=== PATIENT | female | born 1985 | race Caucasian/White ===

== ENCOUNTER 2023-06-11 10:40 | Inpatient (IN) | payer MEDICAID ==
[~2023-06-11] VITALS: Ht 172.7 cm; Wt 73.5 kg
[2023-06-11] MEDS ORDERED: ZOLPIDEM TARTRATE 10 MG TABLET PO PRN (12:15)
[2023-06-11] MEDS ORDERED: LORazepam 2 MG TABLET PO PRN (12:15)
[2023-06-11] MEDS ORDERED: HALOPERIDOL 5 MG TABLET PO PRN (12:15)
[2023-06-11] MEDS ORDERED: INFLUENZA VIRUS VACCINE QVS 2023-24 (6MO+)/PF 60 MCG/0.5 ML SYRINGE IM. ONE (12:30)
[2023-06-11 13:14] VITALS: BP 105/60; PULSE 64; RESP 18; TEMP 97.8; O2SAT 98
[2023-06-11 21:07] VITALS: BP 106/61; PULSE 74; RESP 18; TEMP 97.8; O2SAT 99
[2023-06-12] MEDS ORDERED: DOCUSATE SODIUM 100 MG CAPSULE PO PRN (05:30)
[2023-06-12] MEDS ORDERED: MAG HYDROX/ALUMINUM HYD/SIMETH ES 30 ML SUSPENSION UDCUP PO PRN (05:30)
[2023-06-12] MEDS ORDERED: BACITRACIN 28 GM OINTMENT TP PRN (05:30)
[2023-06-12] MEDS ORDERED: BENZOCAINE/MENTHOL LOZENGE PO PRN (05:30)
[2023-06-12] MEDS ORDERED: ALBUTEROL SULFATE HFA 90 MCG/PUFF 8 GM INHALER IH PRN (05:30)
[2023-06-12] MEDS ORDERED: MAGNESIUM HYDROXIDE SUSPENSION 30 ML UDCUP PO PRN (05:30)
[2023-06-12] MEDS ORDERED: OMEPRAZOLE 20 MG CAPSULE PO PRN (05:30)
[2023-06-12 08:13] VITALS: BP 97/60; PULSE 75; RESP 17; TEMP 97.5; O2SAT 99
[2023-06-12 20:29] VITALS: BP 108/61; PULSE 73; RESP 18; TEMP 98.1; O2SAT 98
[2023-06-13 09:07] VITALS: BP 115/67; PULSE 74; RESP 17; TEMP 97.5; O2SAT 98
[2023-06-13 20:26] VITALS: BP 112/65; PULSE 58; RESP 17; TEMP 97.5; O2SAT 99
[2023-06-14 08:30] VITALS: BP 118/75; PULSE 80; RESP 18; TEMP 98; O2SAT 98
[2023-06-14] MEDS: RisperiDONE 3 MG TABLET PO SCH (16:39)
[2023-06-14 20:30] VITALS: BP 120/65; PULSE 74; RESP 16; TEMP 97.9; O2SAT 98
[2023-06-15] MEDS: RisperiDONE 3 MG TABLET PO SCH ×2 (08:55→17:00)
[2023-06-15 09:09] VITALS: BP 118/70; PULSE 74; RESP 17; TEMP 97.5; O2SAT 100
[2023-06-15 20:49] VITALS: BP 106/60; PULSE 77; RESP 18; TEMP 97.2; O2SAT 99
[2023-06-16 08:38] VITALS: BP 117/67; PULSE 80; RESP 17; TEMP 98.1; O2SAT 99
[2023-06-16] MEDS: RisperiDONE 3 MG TABLET PO SCH ×3 (09:00→16:44)
[2023-06-16 20:24] VITALS: BP 100/64; PULSE 73; RESP 18; TEMP 98.1; O2SAT 98
[2023-06-17 08:27] VITALS: BP 104/55; PULSE 62; RESP 18; TEMP 97.7; O2SAT 99
[2023-06-17] MEDS: RisperiDONE 3 MG TABLET PO SCH ×2 (09:37→16:38)
[2023-06-17] MEDS: PETROLATUM,WHITE 28 GM JELLY TP PRN (11:11)
[2023-06-17 20:12] VITALS: BP 113/60; PULSE 78; RESP 19; TEMP 97.6; O2SAT 96
[2023-06-18 08:19] VITALS: BP 117/62; PULSE 66; RESP 18; TEMP 97.9; O2SAT 98
[2023-06-18] MEDS: RisperiDONE 3 MG TABLET PO SCH ×2 (09:24→16:15)
[2023-06-18] MEDS: IBUPROFEN 600 MG TABLET PO PRN ×3 (09:32→22:26)
[2023-06-18 10:32] VITALS: BP 110/60; RESP 16
[2023-06-18 17:18] VITALS: RESP 16
[2023-06-18 22:26] VITALS: BP 115/65; PULSE 68; RESP 16; TEMP 97.5; O2SAT 96
[2023-06-18 23:26] VITALS: RESP 18
[2023-06-18 23:44] VITALS: BP 120/68; PULSE 70; RESP 18; TEMP 97.6; O2SAT 97
[2023-06-19] MEDS: RisperiDONE 3 MG TABLET PO SCH ×2 (09:02→16:52)
[2023-06-19 09:29] VITALS: BP 135/77; PULSE 87; RESP 17; TEMP 97.4; O2SAT 100
[2023-06-19 20:32] VITALS: BP 118/69; PULSE 83; RESP 21; TEMP 97.6; O2SAT 98
[2023-06-20] MEDS: RisperiDONE 3 MG TABLET PO SCH ×2 (08:11→16:34)
[2023-06-20 08:33] LABS: HEMOGLOBIN A1C 5.3 % (3.8-5.6)
[2023-06-20 08:46] LABS: ALANINE AMINOTRANSFERASE 22 U/L (12-78); ALBUMIN 3.5 g/dL (3.4-5.0); ALKALINE PHOSPHATASE 55 U/L (46-116); ANION GAP 9 mmol/L (8-16); ASPARTATE AMINOTRANSFERASE 16 U/L (15-37); BILIRUBIN,TOTAL 0.2 mg/dL (0.1-1.0); CARBON DIOXIDE 27 mmol/L (22-29); CHLORIDE 103 mmol/L (98-107); CHOL/HDL RATIO 6.4 (3.9-5.7); CHOLESTEROL 256 mg/dL (131-200); CREATININE 0.62 mg/dL (0.60-1.30); GLOMERULAR FILTR. RATE CALC > 60 mL/min (>60); GLUCOSE,RANDOM 102 mg/dL (70-110); HDL CHOLESTEROL 40 mg/dL (40-60); POTASSIUM 3.9 mmol/L (3.5-5.1); SODIUM SERUM 139 mmol/L (136-145); TOTAL PROTEIN, SERUM 7.6 g/dL (6.4-8.2); TRIGLYCERIDES 346 mg/dL (15-150); UREA NITROGEN, BLOOD 10 mg/dL (7-18)
[2023-06-20 08:47] LABS: FREE T4 (FREE THYROXINE) 0.83 ng/dL (0.76-1.46); HCG,QUANTITATIVE < 1 mIU/mL (0-6); LDL CHOL (CALC.) 147 mg/dL (0-130)
[2023-06-20 08:54] VITALS: BP 100/63; PULSE 64; RESP 19; TEMP 98; O2SAT 99
[2023-06-20] MEDS: NICOTINE POLACRILEX 2 MG LOZENGE PO PRN (16:34)
[2023-06-20 21:15] VITALS: BP 125/66; PULSE 77; RESP 18; TEMP 97.8; O2SAT 98
[2023-06-21 08:38] VITALS: BP 108/64; PULSE 79; RESP 16; TEMP 97.4; O2SAT 97
[2023-06-21] MEDS: LITHIUM CARBONATE 300 MG ER TABLET PO SCH ×2 (09:00→17:00)
[2023-06-21] MEDS: DIVALPROEX SODIUM 500 MG DR TABLET PO SCH ×2 (09:00→17:00)
[2023-06-21] MEDS: RisperiDONE 3 MG TABLET PO SCH ×2 (09:32→17:24)
[2023-06-21] MEDS: NICOTINE POLACRILEX 2 MG LOZENGE PO PRN ×2 (09:47→20:25)
[2023-06-21 20:24] VITALS: BP 115/66; PULSE 72; RESP 16; TEMP 97.8; O2SAT 98
[2023-06-22] MEDS: RisperiDONE 3 MG TABLET PO SCH ×2 (08:35→16:21)
[2023-06-22] MEDS: DIVALPROEX SODIUM 500 MG DR TABLET PO SCH ×2 (08:47→16:26)
[2023-06-22] MEDS: LITHIUM CARBONATE 300 MG ER TABLET PO SCH ×2 (08:47→16:26)
[2023-06-22 08:55] VITALS: BP 110/70; PULSE 89; RESP 16; TEMP 97.3; O2SAT 98
[2023-06-22] MEDS: NICOTINE POLACRILEX 2 MG LOZENGE PO PRN ×2 (09:15→16:34)
[2023-06-22 20:15] VITALS: BP 107/63; PULSE 64; RESP 18; TEMP 98.3; O2SAT 99
[2023-06-23 08:32] VITALS: BP 120/75; PULSE 78; RESP 18; TEMP 97.8; O2SAT 97
[2023-06-23] MEDS: RisperiDONE 3 MG TABLET PO SCH ×2 (08:46→16:50)
[2023-06-23] MEDS: LITHIUM CARBONATE 300 MG ER TABLET PO SCH ×3 (08:46→16:50)
[2023-06-23] MEDS: DIVALPROEX SODIUM 500 MG DR TABLET PO SCH ×3 (08:46→16:50)
[2023-06-23] MEDS: NICOTINE POLACRILEX 2 MG LOZENGE PO PRN ×2 (08:46→16:50)
[2023-06-23 20:19] VITALS: BP 129/67; PULSE 70; RESP 18; TEMP 97.8; O2SAT 98
[2023-06-24 08:28] VITALS: BP 113/61; PULSE 75; RESP 18; TEMP 97.9; O2SAT 98
[2023-06-24] MEDS: LITHIUM CARBONATE 300 MG ER TABLET PO SCH ×2 (09:00→17:00)
[2023-06-24] MEDS: DIVALPROEX SODIUM 500 MG DR TABLET PO SCH ×2 (09:00→17:00)
[2023-06-24] MEDS: RisperiDONE 3 MG TABLET PO SCH ×2 (10:51→17:01)
[2023-06-24 20:03] VITALS: BP 122/60; PULSE 65; RESP 18; TEMP 97.5; O2SAT 97
[2023-06-25 08:23] VITALS: BP 115/69; PULSE 68; RESP 18; TEMP 97.8; O2SAT 98
[2023-06-25] MEDS: RisperiDONE 3 MG TABLET PO SCH ×2 (08:32→16:13)
[2023-06-25] MEDS: DIVALPROEX SODIUM 500 MG DR TABLET PO SCH ×2 (08:48→16:13)
[2023-06-25] MEDS: LITHIUM CARBONATE 300 MG ER TABLET PO SCH ×2 (08:48→16:13)
[2023-06-25] MEDS: NICOTINE POLACRILEX 2 MG LOZENGE PO PRN ×2 (12:41→20:28)
[2023-06-25 21:47] VITALS: BP 106/61; PULSE 73; RESP 16; TEMP 97.3; O2SAT 98
[2023-06-26] MEDS: RisperiDONE 3 MG TABLET PO SCH ×2 (08:41→17:40)
[2023-06-26] MEDS: DIVALPROEX SODIUM 500 MG DR TABLET PO SCH ×2 (08:41→17:40)
[2023-06-26] MEDS: LITHIUM CARBONATE 300 MG ER TABLET PO SCH ×2 (08:41→17:40)
[2023-06-26] MEDS: NICOTINE POLACRILEX 2 MG LOZENGE PO PRN ×3 (08:41→21:34)
[2023-06-26 08:45] VITALS: BP 112/62; PULSE 91; RESP 17; TEMP 97.7; O2SAT 96
[2023-06-26 21:04] VITALS: BP 123/60; PULSE 79; RESP 17; TEMP 97.7; O2SAT 96
[2023-06-27 08:22] VITALS: BP 117/65; PULSE 74; RESP 17; TEMP 98; O2SAT 97
[2023-06-27] MEDS: DIVALPROEX SODIUM 500 MG DR TABLET PO SCH ×2 (08:33→17:15)
[2023-06-27] MEDS: RisperiDONE 3 MG TABLET PO SCH ×2 (08:33→17:15)
[2023-06-27] MEDS: LITHIUM CARBONATE 300 MG ER TABLET PO SCH ×2 (08:33→17:15)
[2023-06-27] MEDS: NICOTINE POLACRILEX 2 MG LOZENGE PO PRN ×2 (09:11→15:11)
[2023-06-28 01:08] VITALS: BP 108/68; PULSE 74; RESP 16; TEMP 98.3; O2SAT 98
[2023-06-28 08:12] VITALS: BP 118/73; PULSE 87; RESP 17; TEMP 97.9; O2SAT 98
[2023-06-28] MEDS: RisperiDONE 3 MG TABLET PO SCH ×2 (08:13→16:14)
[2023-06-28] MEDS: DIVALPROEX SODIUM 500 MG DR TABLET PO SCH ×2 (08:17→16:22)
[2023-06-28] MEDS: LITHIUM CARBONATE 300 MG ER TABLET PO SCH ×2 (08:18→16:21)
[2023-06-28] MEDS: NICOTINE POLACRILEX 2 MG LOZENGE PO PRN (10:49)
[2023-06-28 20:25] VITALS: BP 119/62; PULSE 99; RESP 16; TEMP 97.7; O2SAT 99
[2023-06-29 08:20] VITALS: BP 106/59; PULSE 74; RESP 18; O2SAT 97
[2023-06-29] MEDS: RisperiDONE 3 MG TABLET PO SCH ×2 (08:21→16:20)
[2023-06-29] MEDS: LITHIUM CARBONATE 300 MG ER TABLET PO SCH ×2 (08:25→17:00)
[2023-06-29] MEDS: DIVALPROEX SODIUM 500 MG DR TABLET PO SCH ×2 (08:25→17:00)
[2023-06-29] MEDS: NICOTINE POLACRILEX 2 MG LOZENGE PO PRN (08:28)
[2023-06-29] MEDS: PETROLATUM,WHITE 28 GM JELLY TP PRN (18:01)
[2023-06-29] MEDS: NICOTINE POLACRILEX 4 MG LOZENGE PO PRN (18:01)
[2023-06-29 20:07] VITALS: BP 113/55; PULSE 87; RESP 18; TEMP 98.1; O2SAT 98
[2023-06-30] MEDS: RisperiDONE 3 MG TABLET PO SCH ×2 (08:17→16:46)
[2023-06-30 08:26] VITALS: BP 123/64; PULSE 67; RESP 16; TEMP 97.9; O2SAT 100
[2023-06-30] MEDS: DIVALPROEX SODIUM 500 MG DR TABLET PO SCH ×2 (09:00→17:00)
[2023-06-30] MEDS: LITHIUM CARBONATE 300 MG ER TABLET PO SCH ×2 (09:00→17:00)
[2023-06-30 20:06] VITALS: BP 108/66; PULSE 75; RESP 17; TEMP 98.1; O2SAT 97
[2023-07-01] MEDS: DIVALPROEX SODIUM 500 MG DR TABLET PO SCH ×2 (09:00→16:25)
[2023-07-01] MEDS: LITHIUM CARBONATE 300 MG ER TABLET PO SCH ×2 (09:00→16:26)
[2023-07-01 09:07] VITALS: BP 124/69; PULSE 70; RESP 19; TEMP 97.9; O2SAT 98
[2023-07-01] MEDS: RisperiDONE 3 MG TABLET PO SCH ×2 (09:39→16:22)
[2023-07-01] MEDS: NICOTINE POLACRILEX 4 MG LOZENGE PO PRN ×2 (10:22→18:41)
[2023-07-01 20:58] VITALS: BP 116/78; PULSE 80; RESP 18; TEMP 97.6; O2SAT 96
[2023-07-01 22:26] LABS: GLUCOMETER DEV NAME(LOC) POC.BV; POC SARS-COV2 AG, FIA NEGATIVE (NEGATIVE)
[2023-07-02 08:07] VITALS: BP 107/70; PULSE 86; RESP 17; TEMP 97.7; O2SAT 96
[2023-07-02] MEDS: RisperiDONE 3 MG TABLET PO SCH ×2 (08:40→16:40)
[2023-07-02] MEDS: DIVALPROEX SODIUM 500 MG DR TABLET PO SCH ×2 (08:55→16:40)
[2023-07-02] MEDS: LITHIUM CARBONATE 300 MG ER TABLET PO SCH ×2 (08:55→16:41)
[2023-07-02 21:11] VITALS: BP 133/80; PULSE 93; RESP 17; TEMP 97.5; O2SAT 97
[2023-07-03] MEDS: RisperiDONE 3 MG TABLET PO SCH ×2 (08:18→16:40)
[2023-07-03] MEDS: DIVALPROEX SODIUM 500 MG DR TABLET PO SCH ×2 (08:23→16:40)
[2023-07-03] MEDS: LITHIUM CARBONATE 300 MG ER TABLET PO SCH ×2 (08:23→16:40)
[2023-07-03 08:30] VITALS: BP 137/82; PULSE 96; RESP 17; TEMP 97.9; O2SAT 96
[2023-07-03 20:04] VITALS: BP 137/84; PULSE 96; RESP 17; TEMP 97.4; O2SAT 97
[2023-07-03] MEDS ORDERED: LORazepam 2 MG/ML VIAL IM ONE (20:45)
[2023-07-03] MEDS ORDERED: DiphenhydrAMINE HCL 50 MG/ML VIAL IM ONE (20:45)
[2023-07-03] MEDS ORDERED: HALOPERIDOL LACTATE 5 MG/ML VIAL IM ONE (20:45)
[2023-07-04 08:08] VITALS: BP 104/59; PULSE 70; RESP 18; TEMP 97.7; O2SAT 96
[2023-07-04] MEDS: LITHIUM CARBONATE 300 MG ER TABLET PO SCH ×2 (08:34→16:48)
[2023-07-04] MEDS: DIVALPROEX SODIUM 500 MG DR TABLET PO SCH ×2 (08:34→16:48)
[2023-07-04] MEDS: RisperiDONE 3 MG TABLET PO SCH ×2 (08:34→16:48)
[2023-07-04] MEDS: NICOTINE POLACRILEX 4 MG LOZENGE PO PRN (17:22)
[2023-07-04 22:54] VITALS: BP 125/70; PULSE 72; RESP 18; TEMP 97.6; O2SAT 98
[2023-07-05 08:29] VITALS: BP 132/74; PULSE 93; RESP 17; TEMP 98.3; O2SAT 100
[2023-07-05] MEDS: RisperiDONE 3 MG TABLET PO SCH ×2 (08:44→16:09)
[2023-07-05] MEDS: DIVALPROEX SODIUM 500 MG DR TABLET PO SCH ×2 (08:48→16:13)
[2023-07-05] MEDS: LITHIUM CARBONATE 300 MG ER TABLET PO SCH ×2 (08:48→16:13)
[2023-07-05] MEDS: NICOTINE POLACRILEX 4 MG LOZENGE PO PRN ×2 (09:59→17:28)
[2023-07-05 22:06] VITALS: BP 105/56; PULSE 96; RESP 17; TEMP 97.5; O2SAT 97
[2023-07-06 08:37] VITALS: BP 133/70; PULSE 100; RESP 17; TEMP 98; O2SAT 98
[2023-07-06] MEDS: RisperiDONE 3 MG TABLET PO SCH ×2 (08:52→16:21)
[2023-07-06] MEDS: DIVALPROEX SODIUM 500 MG DR TABLET PO SCH ×2 (08:55→16:24)
[2023-07-06] MEDS: LITHIUM CARBONATE 300 MG ER TABLET PO SCH ×2 (08:55→16:24)
[2023-07-06] MEDS: NICOTINE POLACRILEX 4 MG LOZENGE PO PRN ×2 (09:36→16:25)
[2023-07-06 20:46] VITALS: BP 103/58; PULSE 83; RESP 17; TEMP 97.7; O2SAT 99
[2023-07-07 08:14] VITALS: BP 104/81; PULSE 90; RESP 18; TEMP 98.4; O2SAT 99
[2023-07-07] MEDS: DIVALPROEX SODIUM 500 MG DR TABLET PO SCH ×2 (09:00→16:30)
[2023-07-07] MEDS: LITHIUM CARBONATE 300 MG ER TABLET PO SCH ×2 (09:00→16:30)
[2023-07-07] MEDS: RisperiDONE 3 MG TABLET PO SCH ×2 (09:02→16:26)
[2023-07-07] MEDS: NICOTINE POLACRILEX 4 MG LOZENGE PO PRN ×2 (09:07→15:07)
[2023-07-07 20:20] VITALS: BP 116/66; PULSE 83; RESP 18; TEMP 98.9; O2SAT 98
[2023-07-08] MEDS: RisperiDONE 3 MG TABLET PO SCH ×2 (08:16→16:13)
[2023-07-08] MEDS: LITHIUM CARBONATE 300 MG ER TABLET PO SCH ×2 (08:17→16:12)
[2023-07-08] MEDS: DIVALPROEX SODIUM 500 MG DR TABLET PO SCH ×2 (08:17→16:12)
[2023-07-08 08:34] VITALS: BP 101/59; PULSE 76; RESP 18; TEMP 97.8; O2SAT 100
[2023-07-08] MEDS: NICOTINE POLACRILEX 4 MG LOZENGE PO PRN ×3 (08:51→19:12)
[2023-07-08 20:56] VITALS: BP 138/79; PULSE 79; RESP 18; TEMP 97.7
[2023-07-09] MEDS: RisperiDONE 3 MG TABLET PO SCH ×2 (08:08→16:28)
[2023-07-09 08:17] VITALS: BP 106/66; PULSE 66; RESP 18; TEMP 97.8; O2SAT 100
[2023-07-09] MEDS: LITHIUM CARBONATE 300 MG ER TABLET PO SCH ×2 (09:00→16:43)
[2023-07-09] MEDS: DIVALPROEX SODIUM 500 MG DR TABLET PO SCH ×2 (09:00→16:43)
[2023-07-09] MEDS: NICOTINE POLACRILEX 4 MG LOZENGE PO PRN ×2 (09:01→16:28)
[2023-07-09 21:03] VITALS: BP 121/70; PULSE 66; RESP 18; TEMP 98.7
[2023-07-10 08:34] VITALS: BP 116/69; PULSE 77; RESP 19; TEMP 97.5; O2SAT 100
[2023-07-10] MEDS: RisperiDONE 3 MG TABLET PO SCH ×2 (08:56→16:30)
[2023-07-10] MEDS: LITHIUM CARBONATE 300 MG ER TABLET PO SCH ×2 (08:59→16:30)
[2023-07-10] MEDS: DIVALPROEX SODIUM 500 MG DR TABLET PO SCH ×2 (09:00→16:30)
[2023-07-10] MEDS: NICOTINE POLACRILEX 4 MG LOZENGE PO PRN ×2 (09:32→16:36)
[2023-07-10 20:07] VITALS: BP 122/78; PULSE 81; RESP 18; TEMP 98.5; O2SAT 87
[2023-07-11 08:04] VITALS: BP 108/61; PULSE 76; RESP 16; TEMP 97.3; O2SAT 98
[2023-07-11] MEDS: RisperiDONE 3 MG TABLET PO SCH ×2 (08:14→16:25)
[2023-07-11] MEDS: DIVALPROEX SODIUM 500 MG DR TABLET PO SCH ×2 (08:18→16:31)
[2023-07-11] MEDS: NICOTINE POLACRILEX 4 MG LOZENGE PO PRN ×2 (08:18→13:57)
[2023-07-11] MEDS: LITHIUM CARBONATE 300 MG ER TABLET PO SCH ×2 (08:19→16:31)
[2023-07-11] MEDS: ROSUVASTATIN CALCIUM 20 MG TABLET PO SCH (20:10)
[2023-07-12 03:17] VITALS: BP 106/60; PULSE 69; RESP 17; TEMP 97.3; O2SAT 99
[2023-07-12 08:07] VITALS: BP 109/83; PULSE 63; RESP 16; TEMP 97.6; O2SAT 98
[2023-07-12] MEDS: RisperiDONE 3 MG TABLET PO SCH ×2 (08:14→16:23)
[2023-07-12] MEDS: LITHIUM CARBONATE 300 MG ER TABLET PO SCH ×2 (08:16→16:26)
[2023-07-12] MEDS: DIVALPROEX SODIUM 500 MG DR TABLET PO SCH ×2 (08:16→16:26)
[2023-07-12] MEDS: NICOTINE POLACRILEX 4 MG LOZENGE PO PRN ×2 (08:19→14:39)
[2023-07-12] MEDS: ROSUVASTATIN CALCIUM 20 MG TABLET PO SCH (20:27)
[2023-07-13 00:30] VITALS: BP 116/78; PULSE 70; RESP 16; TEMP 97.1; O2SAT 98
[2023-07-13] MEDS: RisperiDONE 3 MG TABLET PO SCH ×2 (08:02→16:32)
[2023-07-13] MEDS: DIVALPROEX SODIUM 500 MG DR TABLET PO SCH ×3 (08:02→16:32)
[2023-07-13] MEDS: NICOTINE POLACRILEX 4 MG LOZENGE PO PRN ×3 (08:02→20:15)
[2023-07-13] MEDS: LITHIUM CARBONATE 300 MG ER TABLET PO SCH ×3 (08:02→16:32)
[2023-07-13 08:09] VITALS: BP 125/65; PULSE 69; RESP 16; TEMP 97.6; O2SAT 99
[2023-07-13] MEDS: ROSUVASTATIN CALCIUM 20 MG TABLET PO SCH (20:11)
[2023-07-13 20:17] VITALS: BP 133/75; PULSE 62; RESP 17; TEMP 97.3; O2SAT 98
[2023-07-14] MEDS: NICOTINE POLACRILEX 4 MG LOZENGE PO PRN ×3 (08:04→21:58)
[2023-07-14 08:23] VITALS: BP 121/64; PULSE 90; RESP 17; TEMP 97.8; O2SAT 99
[2023-07-14] MEDS: LITHIUM CARBONATE 300 MG ER TABLET PO SCH ×2 (09:00→16:12)
[2023-07-14] MEDS: DIVALPROEX SODIUM 500 MG DR TABLET PO SCH ×2 (09:00→16:12)
[2023-07-14] MEDS: RisperiDONE 3 MG TABLET PO SCH ×2 (09:00→16:12)
[2023-07-14] MEDS: ROSUVASTATIN CALCIUM 20 MG TABLET PO SCH (21:00)
[2023-07-14 21:46] VITALS: BP 127/69; PULSE 76; RESP 18; TEMP 97.3; O2SAT 100
[2023-07-15] MEDS: LITHIUM CARBONATE 300 MG ER TABLET PO SCH ×2 (08:51→16:20)
[2023-07-15] MEDS: DIVALPROEX SODIUM 500 MG DR TABLET PO SCH ×2 (08:51→16:19)
[2023-07-15] MEDS: RisperiDONE 3 MG TABLET PO SCH ×2 (08:52→16:20)
[2023-07-15] MEDS: NICOTINE POLACRILEX 4 MG LOZENGE PO PRN ×2 (09:28→16:21)
[2023-07-15 14:22] VITALS: BP 125/73; PULSE 66; RESP 17; TEMP 97.3; O2SAT 99
[2023-07-15] MEDS: ROSUVASTATIN CALCIUM 20 MG TABLET PO SCH (20:20)
[2023-07-15 21:33] VITALS: RESP 18; TEMP 98.1
[2023-07-16 08:28] VITALS: BP 125/80; PULSE 76; RESP 18; TEMP 98.3; O2SAT 100
[2023-07-16] MEDS: LITHIUM CARBONATE 300 MG ER TABLET PO SCH ×2 (09:00→17:00)
[2023-07-16] MEDS: RisperiDONE 3 MG TABLET PO SCH ×2 (09:00→17:00)
[2023-07-16] MEDS: DIVALPROEX SODIUM 500 MG DR TABLET PO SCH ×2 (09:00→17:00)
[2023-07-16] MEDS: NICOTINE POLACRILEX 4 MG LOZENGE PO PRN (12:10)
[2023-07-16 20:07] VITALS: BP 116/70; PULSE 84; RESP 17; TEMP 97.8
[2023-07-16] MEDS: ROSUVASTATIN CALCIUM 20 MG TABLET PO SCH (21:00)
[2023-07-17 08:28] VITALS: BP 126/73; PULSE 89; RESP 17; TEMP 98.1; O2SAT 99
[2023-07-17] MEDS: LITHIUM CARBONATE 300 MG ER TABLET PO SCH ×2 (09:00→17:00)
[2023-07-17] MEDS: DIVALPROEX SODIUM 500 MG DR TABLET PO SCH ×2 (09:00→17:00)
[2023-07-17] MEDS: RisperiDONE 3 MG TABLET PO SCH ×2 (09:00→17:00)
[2023-07-17] MEDS: NICOTINE POLACRILEX 4 MG LOZENGE PO PRN ×2 (10:17→17:36)
[2023-07-17 20:15] VITALS: RESP 16
[2023-07-17] MEDS: ROSUVASTATIN CALCIUM 20 MG TABLET PO SCH (20:30)
[2023-07-17] MEDS ORDERED: HALOPERIDOL LACTATE 5 MG/ML VIAL IM ONE (22:15)
[2023-07-18] MEDS: LITHIUM CARBONATE 300 MG ER TABLET PO SCH ×2 (09:00→17:00)
[2023-07-18] MEDS: DIVALPROEX SODIUM 500 MG DR TABLET PO SCH ×2 (09:00→17:00)
[2023-07-18] MEDS: RisperiDONE 3 MG TABLET PO SCH ×2 (09:00→17:00)
[2023-07-18 09:02] VITALS: BP 116/90; PULSE 105; RESP 17; TEMP 98.3; O2SAT 96
[2023-07-18] MEDS: ROSUVASTATIN CALCIUM 20 MG TABLET PO SCH (21:00)
[2023-07-18 21:08] VITALS: RESP 17; TEMP 98.1
[2023-07-19 08:24] VITALS: BP 114/89; PULSE 99; RESP 17; TEMP 98.4; O2SAT 97
[2023-07-19] MEDS: RisperiDONE 3 MG TABLET PO SCH ×2 (09:00→17:00)
[2023-07-19] MEDS: LITHIUM CARBONATE 300 MG ER TABLET PO SCH ×2 (09:00→17:00)
[2023-07-19] MEDS: DIVALPROEX SODIUM 500 MG DR TABLET PO SCH ×2 (09:00→17:00)
[2023-07-19] MEDS: NICOTINE POLACRILEX 4 MG LOZENGE PO PRN ×2 (10:03→16:24)
[2023-07-19 20:36] VITALS: BP 128/73; PULSE 79; RESP 16; TEMP 98; O2SAT 99
[2023-07-19] MEDS: ROSUVASTATIN CALCIUM 20 MG TABLET PO SCH (21:38)
[2023-07-20] MEDS: DIVALPROEX SODIUM 500 MG DR TABLET PO SCH ×2 (09:00→17:00)
[2023-07-20] MEDS: LITHIUM CARBONATE 300 MG ER TABLET PO SCH ×2 (09:00→17:00)
[2023-07-20] MEDS: RisperiDONE 3 MG TABLET PO SCH ×2 (09:00→17:00)
[2023-07-20] MEDS: NICOTINE POLACRILEX 4 MG LOZENGE PO PRN ×2 (09:21→17:29)
[2023-07-20] MEDS ORDERED: HALOPERIDOL LACTATE 5 MG/ML VIAL IM PRN (10:15)
[2023-07-20 17:37] VITALS: BP 137/88
[2023-07-20] MEDS: ROSUVASTATIN CALCIUM 20 MG TABLET PO SCH (20:11)
[2023-07-20 21:38] VITALS: BP 137/88; PULSE 83; RESP 18; TEMP 98.2; O2SAT 100
[2023-07-21 08:32] VITALS: BP 128/80; PULSE 79; RESP 18; TEMP 98; O2SAT 98
[2023-07-21] MEDS: RisperiDONE 3 MG TABLET PO SCH ×2 (09:00→16:33)
[2023-07-21] MEDS: LITHIUM CARBONATE 300 MG ER TABLET PO SCH ×2 (09:00→16:33)
[2023-07-21] MEDS: DIVALPROEX SODIUM 500 MG DR TABLET PO SCH ×2 (09:00→16:33)
[2023-07-21] MEDS: NICOTINE POLACRILEX 4 MG LOZENGE PO PRN ×2 (10:00→18:12)
[2023-07-21] MEDS: ROSUVASTATIN CALCIUM 20 MG TABLET PO SCH (20:12)
[2023-07-21 20:41] VITALS: BP 117/73; PULSE 83; RESP 17; TEMP 98; O2SAT 99
[2023-07-22] MEDS: DIVALPROEX SODIUM 500 MG DR TABLET PO SCH ×2 (09:00→16:48)
[2023-07-22] MEDS: LITHIUM CARBONATE 300 MG ER TABLET PO SCH ×2 (09:00→16:48)
[2023-07-22] MEDS: RisperiDONE 3 MG TABLET PO SCH ×2 (09:00→16:48)
[2023-07-22] MEDS: NICOTINE POLACRILEX 4 MG LOZENGE PO PRN ×2 (10:03→16:47)
[2023-07-22 12:35] VITALS: BP 133/88; PULSE 98; RESP 16; TEMP 98; O2SAT 98
[2023-07-22 20:10] VITALS: BP 106/68; PULSE 68; RESP 19; TEMP 97.7; O2SAT 99
[2023-07-22] MEDS: ROSUVASTATIN CALCIUM 20 MG TABLET PO SCH (20:15)
[2023-07-23] MEDS: NICOTINE POLACRILEX 4 MG LOZENGE PO PRN ×2 (07:52→20:18)
[2023-07-23 08:38] VITALS: BP 106/62; PULSE 77; RESP 17; TEMP 97.9; O2SAT 98
[2023-07-23] MEDS: RisperiDONE 3 MG TABLET PO SCH ×2 (08:57→17:00)
[2023-07-23] MEDS: DIVALPROEX SODIUM 500 MG DR TABLET PO SCH ×2 (08:57→17:00)
[2023-07-23] MEDS: LITHIUM CARBONATE 300 MG ER TABLET PO SCH ×2 (08:57→17:00)
[2023-07-23] MEDS: ROSUVASTATIN CALCIUM 20 MG TABLET PO SCH (20:18)
[2023-07-23 20:29] VITALS: BP 116/52; PULSE 68; RESP 18; TEMP 98; O2SAT 96
[2023-07-24 08:20] VITALS: BP 119/64; PULSE 78; RESP 18; TEMP 98.6; O2SAT 96
[2023-07-24] MEDS: DIVALPROEX SODIUM 500 MG DR TABLET PO SCH ×2 (09:00→16:56)
[2023-07-24] MEDS: RisperiDONE 3 MG TABLET PO SCH ×2 (09:00→16:57)
[2023-07-24] MEDS: LITHIUM CARBONATE 300 MG ER TABLET PO SCH ×2 (09:00→16:56)
[2023-07-24] MEDS: NICOTINE POLACRILEX 4 MG LOZENGE PO PRN ×2 (09:24→16:49)
[2023-07-24 20:12] VITALS: BP 116/71; PULSE 78; RESP 18; TEMP 98.4; O2SAT 96
[2023-07-24] MEDS: ROSUVASTATIN CALCIUM 20 MG TABLET PO SCH (20:42)
[2023-07-25 08:41] VITALS: BP 113/65; PULSE 81; RESP 18; TEMP 98; O2SAT 97
[2023-07-25] MEDS: DIVALPROEX SODIUM 500 MG DR TABLET PO SCH ×2 (09:00→16:38)
[2023-07-25] MEDS: RisperiDONE 3 MG TABLET PO SCH ×2 (09:00→16:38)
[2023-07-25] MEDS: LITHIUM CARBONATE 300 MG ER TABLET PO SCH ×2 (09:00→16:38)
[2023-07-25] MEDS: NICOTINE POLACRILEX 4 MG LOZENGE PO PRN ×2 (09:04→18:32)
[2023-07-25] MEDS: ROSUVASTATIN CALCIUM 20 MG TABLET PO SCH (20:20)
[2023-07-25 20:46] VITALS: BP 133/66; PULSE 76; RESP 18; TEMP 98.1; O2SAT 100
[2023-07-26] MEDS: LITHIUM CARBONATE 300 MG ER TABLET PO SCH ×2 (08:32→16:20)
[2023-07-26] MEDS: RisperiDONE 3 MG TABLET PO SCH ×2 (08:32→16:20)
[2023-07-26] MEDS: DIVALPROEX SODIUM 500 MG DR TABLET PO SCH ×2 (08:32→16:20)
[2023-07-26] MEDS: NICOTINE POLACRILEX 4 MG LOZENGE PO PRN (08:47)
[2023-07-26 08:55] VITALS: BP 109/60; PULSE 72; RESP 17; TEMP 97.7; O2SAT 97
[2023-07-26] MEDS: ROSUVASTATIN CALCIUM 20 MG TABLET PO SCH (20:14)
[2023-07-26 21:30] VITALS: BP 114/52; PULSE 74; RESP 16; TEMP 98.2; O2SAT 98
[2023-07-27] MEDS: NICOTINE POLACRILEX 4 MG LOZENGE PO PRN ×3 (08:29→21:40)
[2023-07-27 08:37] VITALS: BP 122/72; PULSE 79; TEMP 97.9
[2023-07-27] MEDS: DIVALPROEX SODIUM 500 MG DR TABLET PO SCH ×2 (08:50→16:53)
[2023-07-27] MEDS: RisperiDONE 3 MG TABLET PO SCH ×2 (08:50→16:54)
[2023-07-27] MEDS: LITHIUM CARBONATE 300 MG ER TABLET PO SCH ×2 (08:50→16:54)
[2023-07-27 20:26] VITALS: BP 129/72; PULSE 71; RESP 17; TEMP 97.4; O2SAT 98
[2023-07-27] MEDS: ROSUVASTATIN CALCIUM 20 MG TABLET PO SCH (21:40)
[2023-07-28] MEDS: NICOTINE POLACRILEX 4 MG LOZENGE PO PRN ×2 (08:41→17:16)
[2023-07-28] MEDS: DIVALPROEX SODIUM 500 MG DR TABLET PO SCH ×2 (08:58→16:43)
[2023-07-28] MEDS: RisperiDONE 3 MG TABLET PO SCH ×2 (08:59→16:44)
[2023-07-28] MEDS: LITHIUM CARBONATE 300 MG ER TABLET PO SCH ×2 (08:59→16:44)
[2023-07-28 09:29] VITALS: BP 108/67; PULSE 78; RESP 17; TEMP 98.3; O2SAT 97
[2023-07-28 21:10] VITALS: BP 118/76; PULSE 82; RESP 18; TEMP 97.8; O2SAT 99
[2023-07-28] MEDS: ROSUVASTATIN CALCIUM 20 MG TABLET PO SCH (21:10)
[2023-07-29 08:39] VITALS: BP 127/78; PULSE 76; RESP 18; TEMP 97.8; O2SAT 98
[2023-07-29] MEDS: LITHIUM CARBONATE 300 MG ER TABLET PO SCH ×2 (09:00→17:00)
[2023-07-29] MEDS: RisperiDONE 3 MG TABLET PO SCH ×2 (09:00→17:00)
[2023-07-29] MEDS: DIVALPROEX SODIUM 500 MG DR TABLET PO SCH ×2 (09:00→17:00)
[2023-07-29] MEDS: NICOTINE POLACRILEX 4 MG LOZENGE PO PRN ×2 (10:26→17:59)
[2023-07-29 20:28] VITALS: BP 123/67; PULSE 70; RESP 19; TEMP 98.1; O2SAT 98
[2023-07-29] MEDS: ROSUVASTATIN CALCIUM 20 MG TABLET PO SCH (21:00)
[2023-07-30] MEDS: DIVALPROEX SODIUM 500 MG DR TABLET PO SCH ×2 (08:58→17:00)
[2023-07-30] MEDS: LITHIUM CARBONATE 300 MG ER TABLET PO SCH ×2 (08:58→17:00)
[2023-07-30] MEDS: NICOTINE POLACRILEX 4 MG LOZENGE PO PRN ×2 (08:59→20:41)
[2023-07-30] MEDS: RisperiDONE 3 MG TABLET PO SCH ×2 (08:59→17:00)
[2023-07-30 09:18] VITALS: BP 117/65; PULSE 76; RESP 17; TEMP 97.6; O2SAT 98
[2023-07-30 20:08] VITALS: BP 136/77; PULSE 88; RESP 17; TEMP 98.7; O2SAT 99
[2023-07-30] MEDS: ROSUVASTATIN CALCIUM 20 MG TABLET PO SCH (20:37)
[2023-07-31] MEDS: RisperiDONE 3 MG TABLET PO SCH ×2 (09:00→16:42)
[2023-07-31] MEDS: DIVALPROEX SODIUM 500 MG DR TABLET PO SCH ×2 (09:00→16:41)
[2023-07-31] MEDS: LITHIUM CARBONATE 300 MG ER TABLET PO SCH ×2 (09:00→16:42)
[2023-07-31] MEDS: NICOTINE POLACRILEX 4 MG LOZENGE PO PRN ×2 (10:28→17:37)
[2023-07-31 12:30] VITALS: BP 102/57; PULSE 80; RESP 17; TEMP 98.2; O2SAT 96
[2023-07-31 20:08] VITALS: BP 114/57; PULSE 78; RESP 19; TEMP 98.2; O2SAT 95
[2023-07-31] MEDS: ROSUVASTATIN CALCIUM 20 MG TABLET PO SCH (20:18)
[2023-08-01] MEDS: RisperiDONE 3 MG TABLET PO SCH ×2 (08:20→16:26)
[2023-08-01] MEDS: DIVALPROEX SODIUM 500 MG DR TABLET PO SCH ×2 (08:20→16:25)
[2023-08-01] MEDS: LITHIUM CARBONATE 300 MG ER TABLET PO SCH ×2 (08:20→16:25)
[2023-08-01] MEDS: ROSUVASTATIN CALCIUM 20 MG TABLET PO SCH (20:16)
[2023-08-01 22:20] VITALS: BP 123/73; PULSE 83; RESP 18; TEMP 97.8; O2SAT 99
[2023-08-02 08:14] VITALS: BP 111/76; PULSE 83; RESP 18; TEMP 97.6; O2SAT 100
[2023-08-02] MEDS: DIVALPROEX SODIUM 500 MG DR TABLET PO SCH ×2 (08:58→16:58)
[2023-08-02] MEDS: RisperiDONE 3 MG TABLET PO SCH ×2 (08:58→16:58)
[2023-08-02] MEDS: LITHIUM CARBONATE 300 MG ER TABLET PO SCH ×2 (08:58→16:58)
[2023-08-02] MEDS: NICOTINE POLACRILEX 4 MG LOZENGE PO PRN (09:59)
[2023-08-02 21:31] VITALS: BP 109/83; PULSE 75; RESP 18; TEMP 97.4; O2SAT 99
[2023-08-02] MEDS: ROSUVASTATIN CALCIUM 20 MG TABLET PO SCH (21:38)
[2023-08-03] MEDS: LITHIUM CARBONATE 300 MG ER TABLET PO SCH ×2 (09:00→17:00)
[2023-08-03] MEDS: RisperiDONE 3 MG TABLET PO SCH ×2 (09:00→17:00)
[2023-08-03] MEDS: DIVALPROEX SODIUM 500 MG DR TABLET PO SCH ×2 (09:00→17:00)
[2023-08-03] MEDS: NICOTINE POLACRILEX 4 MG LOZENGE PO PRN (09:12)
[2023-08-03 09:32] VITALS: BP 128/68; PULSE 72; RESP 18; TEMP 97.6; O2SAT 99
[2023-08-03 20:20] VITALS: BP 111/60; PULSE 78; RESP 18; TEMP 98.3; O2SAT 100
[2023-08-03] MEDS: ROSUVASTATIN CALCIUM 20 MG TABLET PO SCH (20:40)
[2023-08-04 08:30] VITALS: BP 111/60; PULSE 77; RESP 17; TEMP 98; O2SAT 99
[2023-08-04] MEDS: RisperiDONE 3 MG TABLET PO SCH (09:00)
[2023-08-04] MEDS: LITHIUM CARBONATE 300 MG ER TABLET PO SCH (09:00)
[2023-08-04] MEDS: DIVALPROEX SODIUM 500 MG DR TABLET PO SCH (09:00)
[2023-08-04] MEDS: NICOTINE POLACRILEX 4 MG LOZENGE PO PRN (09:26)
[2023-08-04] MEDS ORDERED: DIVA-112 PO (12:34)
[2023-08-04] MEDS ORDERED: LITH300CRT PO (12:35)
[2023-08-04] MEDS ORDERED: RISP3TAB63 PO (12:36)
== END 2023-08-04 17:37 | disposition home or self-care (01) | DRG 751 ==
LOC: B2S 12:21
PROVIDERS: ADMIT Psychiatry & Neurology Psychiatry; ATTEND Psychiatry & Neurology Psychiatry
DX: F29 Unspecified psychosis not due to a substance or known physiological condition (principal); F25.9 Schizoaffective disorder, unspecified; F32.A Depression, unspecified; F41.9 Anxiety disorder, unspecified; F94.0 Selective mutism; G47.00 Insomnia, unspecified; Z20.822 Contact with and (suspected) exposure to COVID-19; K59.00 Constipation, unspecified; Z79.899 Other long term (current) drug therapy; Z88.5 Allergy status to narcotic agent; Z88.8 Allergy status to other drugs, medicaments and biological substances; Z91.011 Allergy to milk products
CPT/HCPCS: 80053; 80061; 83036; 84439; 84443; 84702; 87081; 90686; J1200; J1630; J2060; Q9967